=== PATIENT | male | born 1950 | race Caucasian/White ===

== ENCOUNTER → 2018-08-23 09:57 | Outpatient (CLI) | payer OTHER, SELFPAY ==
--- NOTE | 2018-08-23 10:01 | US_ITS ---
PROCEDURES: ULTRASOUND AORTA REASON FOR EXAM: Male, 67 years old. Aortic aneurysm TECHNIQUE: Ultrasound evaluation of the aorta was performed with real-time and static marques-scale imaging. COMPARISON: None. FINDINGS: There is no elongation or tortuosity of the abdominal aorta. Aorta measures: Proximal 2 cm. Middle 1.5 cm. Distal 1.5 cm. Aorta measure transversely: Proximal 2.6 cm. Middle 1.7 cm. Distal 1.4 cm. Right iliac artery measures: 1 cm. Right iliac artery measure transversely: 1 cm. Left iliac artery measures: 0.9 cm. Left iliac artery measure transversely: 1 cm. There is no demonstrated aneurysm.. US/Aorta IMPRESSION: No evidence for aortic aneurysm Electronically Signed: Nikolai Mckay MD at 21:49 EDT , Service support ,
== END ==
DX: I10 Essential (primary) hypertension (principal); J44.9 Chronic obstructive pulmonary disease, unspecified; Z87.891 Personal history of nicotine dependence
CPT/HCPCS: 76775

== ENCOUNTER → 2021-05-07 13:41 | Outpatient (CLI) | payer OTHER, SELFPAY ==
--- NOTE | 2021-05-07 13:45 | CT_ITS ---
STUDY: LOW DOSE CT LUNG CANCER SCREENING REASON FOR EXAM: Male, 70 years old. LUNG CA SCREENING. Former smoker. Patient smoked 1 pack per day for 40 years. RADIATION DOSAGE (If Supplied By Facility): CTDIvol = ( 4.02 ) mGy, DLP = ( 141.45 ) mGycm TECHNIQUE: No contrast was administered. Low dose technique was utilized (average mAS-38 and kVp 120). 1.25 mm axial source images with a slice interval of 1.25-mm were reconstructed in lung windows. 2.5 mm axial source images with a slice interval of 2.5-mm were reconstructed in lung windows. 5.0 mm axial source images with a slice interval of 5.0-mm were reconstructed in soft tissue windows. Nodule measured using lung windows on PACS and/or independent workstation with automated measurement of minimum and maximum diameter. Nodule measurement reported as average diameter rounded to the nearest whole number. Growth is defined as an increase ins size of greater than 1.5 mm. COMPARISON: None. Small benign-appearing bilateral axillary lymph nodes. NODULES: 1.5 mm noncalcified nodule in the peripheral lateral aspect of the left upper lobe as seen on axial image #108. Calcified granuloma in the lateral anterior left upper lobe. There is a 3.3 mm partially calcified nodule in the anterior aspect of the right upper lobe as seen on axial image #131. Tiny calcified nodule in the anterior aspect of the left upper lobe as seen on axial image #134. Emphysema: Focal linear scarring in the posterior aspect of the lingular segment of the left upper lobe abutting the left major fissure. Mild scarring at the lung bases slightly more prominent on the right side. Calcified granuloma in the right lower lobe. Endobronchial lesion: None Aorta: Atherosclerotic plaque formation. Coronary arteries: Coronary artery calcification. Heart: Unremarkable Pulmonary artery: Unremarkable Mediastinal nodes: Other chest and abdominal findings: CT/Low Dose CT Lung Screening IMPRESSION: Lung-RADS category 2 - Continue annual screening with LDCT in 12 months. IMPORTANT NOTES FOR USE: ACR Lung-RADS Version 1.1 Assessment Categories Release Date: 2018 Category: Coded 0-4 bases on nodule(s) with highest degree of suspicion. Negative screen is defined as categories 1 and 2; a positive screen is defined as categories 3 and 4. Category 3 and 4A nodules that are unchanged on interval CT should be coded as category 2, and individuals returned to screening in 12 months. Category 4X: Category 3 or 4 nodules with additional imaging findings that increase the suspicion of lung cancer, such as spiculation, GGN that doubles in size in 1 year, enlarged lymph notes, etc. Category Modifiers: S (significant finding unrelated to lung cancer) Electronically Signed: Candelario Esquivel MD at 14:43 EST , Service support ,
== END ==
PROVIDERS: Visit Provider Nurse Practitioner
DX: Z12.2 Encounter for screening for malignant neoplasm of respiratory organs (principal); Z87.891 Personal history of nicotine dependence
CPT/HCPCS: 71271

== ENCOUNTER → 2021-05-21 09:43 | Outpatient (CLI) | payer OTHER, SELFPAY ==
--- NOTE | 2021-05-21 09:45 | ECHOCS_ITS ---
Reason For Study: CHEST PAIN Procedure This was a 2D Doppler, Color Flow transthoracic echocardiogram. The study was technically difficult. Contrast injection was performed. Exam performed in department. Left Ventricle Normal LV size. Mild concentric left ventricular hypertrophy. Left ventricular systolic function is normal. The estimated ejection fraction is 60 %. Stage 1 diastolic dysfunction. No regional wall motion abnormalities noted. Right Ventricle Normal RV size. Normal systolic function. Atria Normal left atrium. Normal right atrium. Mitral Valve Normal mitral valve. Tricuspid Valve Normal tricuspid valve. Mild (1+) tricuspid valve insufficiency. Pulmonary artery systolic pressure is 30 mmHg. Aortic Valve Normal aortic valve. Pulmonic Valve Normal pulmonic valve. Great Vessels Normal aortic root. The pulmonary artery is normal size. Normal inferior vena cava. Pericardium/Pleural No pericardial effusion. Medication 22 gauge I.V. with prn adaptor inserted into right arm. Diluted definity 3.0ml given slow IV push to enhance endocardial definition. MMode/2D Measurements & Calculations LVIDd: 4.3 cm IVSd: 1.2 cm Ao root diam: 3.6 cm LVIDs: 3.1 cm LVPWd: 1.3 cm RVDd: 3.3 cm FS: 26.8 % LAV(MOD-bp): 40.0 ml LA A4 area: 15.7 cm2 LA dimension(2D): 2.7 cm LAV(MOD-bp) Indexed: 18.5 ml/m2 LAV(MOD-sp2): 41.4 ml LAV(MOD-sp4): 34.5 ml RA A4 area: 12.4 cm2 Doppler Measurements & Calculations MV E max guanaco: 44.2 cm/sec Lat Peak E' Guanaco: 8.3 cm/sec Med Peak E' Guanaco: 5.7 cm/sec MV A max guanaco: 80.5 cm/sec E/E' lat: 5.4 E/E' med: 7.7 MV E/A: 0.55 Ao V2 max: 114.2 cm/sec LV V1 max: 94.4 cm/sec TR max guanaco: 252.1 cm/sec Ao max P.2 mmHg LV V1 max P.6 mmHg TR max P.4 mmHg ECHO/Echo Complete W/ Contrast Interpretation Summary Normal LV size. Left ventricular systolic function is normal. The estimated ejection fraction is 60 %. Mild concentric left ventricular hypertrophy. Stage 1 diastolic dysfunction. Pulmonary artery systolic pressure is 30 mmHg. Ordering Physician: BEBE JULY Referring Physician: FARHEEN FL Performed By: Gaby Natarajan, MADONNACS, RVT
== END ==
DX: R07.9 Chest pain, unspecified (principal)
CPT/HCPCS: 93306; Q9957; A4216; C8929

== ENCOUNTER → 2021-05-26 06:39 | Outpatient (CLI) | payer OTHER, SELFPAY ==
--- NOTE | 2021-05-26 14:28 | STRESSREP ---
Stress Test Report Date: 05-26-2021 Procedure: Pharmacologic stress nuclear imaging study Indications: Chest pain; hypertension Consent: Per the patient Procedure: The patient underwent pharmacologic (Regadenoson 0.4mg ) evaluation with a peak heart rate of 88 beats per minute (59%predicted maximal heart rate) and a peak blood pressure of 198/100 mmHg. The baseline ECG demonstrated sinus rhythm. The peak pharmacologic ECG demonstrated no obvious ECG changes. There was an isolated PVC pretest. There was no complaint of chest discomfort during pharmacologic infusion or recovery. The examination was discontinued secondary to completion of protocol. Impression: 1. Pharmacologic (Regadenoson) evaluation 2. Peak pharmacologic ECG with no obvious ECG changes. 3. There were no cardiac dysrhythmias pretest, during pharmacologic infusion, or recovery. 4. Nuclear images pending Myocardial perfusion imaging study: Technique: The patient was injected with 14.8 millicuries of technetium 99m Cardiolite and subsequently rest SPECT Cardiolite nuclear imaging was obtained in the horizontal long, vertical long, and short axis views. The patient underwent pharmacologic (Regadenoson) evaluation with a peak heart rate of 88 beats per minute (59% percent predicted maximal heart rate) and a peak blood pressure of 198/100 mmHg. The patient was injected with 45.0 millicuries of technetium 99m Cardiolite and subsequently stress SPECT Cardiolite nuclear imaging was obtained in the horizontal long, vertical long, and short axis views. A gated Cardiolite study at peak stress was obtained. Interpretation: Rest and stress SPECT Cardiolite nuclear imaging status post realignment, normalization, and attenuation correction demonstrate relative uniform tracer uptake and myocardial perfusion appearing within normal limits. There is end systolic thickening and brightening. The gated Cardiolite study demonstrates myocardial thickening and inward wall motion. The reported LVEF is 66%. Impression: 1. Rest and stress SPECT Cardiolite nuclear imaging demonstrate relative uniform tracer uptake and myocardial perfusion appearing within normal limits. 2. The gated Cardiolite study reports an LVEF of 66%. This note was generated with [employer] software. It may contain incorrect words, spelling, and punctuation that were not noted in checking the note before signing.
== END ==
DX: R07.9 Chest pain, unspecified (principal)
CPT/HCPCS: 78452; 93017; A9500; A4216; J2785

== ENCOUNTER → 2022-06-16 | Outpatient (CLI) | payer OTHER, MEDICARE, SELFPAY ==
--- NOTE | 2022-06-16 14:26 | CT_ITS ---
STUDY: CT CHEST WITHOUT CONTRAST REASON FOR EXAM: Male, 71 years old. HX PULM NODULE/FU RADIATION DOSAGE (If Supplied By Facility): CTDIvol = ( 13.48 ) mGy, DLP = ( 491.92 ) mGycm TECHNIQUE: Transaxial imaging was performed without the administration of intravenous contrast material. Multiplanar coronal and sagittal images were reformatted. Individualized dose optimization techniques were used for this CT. COMPARISON: Comparison is made with prior study dated 05/07/2021. FINDINGS: CHEST Stable small benign-appearing bilateral axillary lymph nodes. Stable 1.5 mm noncalcified peripheral lateral aspect of the left upper lobe as seen on axial image #57. Adjacent to this, there is a tiny calcified granuloma. Stable 3.3 mm partially calcified nodule in the anterior aspect of the right upper lobe as seen on axial image #67. Stable focal linear scarring in posterior aspect of the lingular segment left upper lobe as well as at the lung bases more prominent on the right side. There is no demonstrated pleural abnormality. There are calcifications of the coronary arteries. Mild degree of anterior pericardial thickening. There are multiple small lymph nodes within the mediastinum, which are normal in size and morphology most compatible with reactive lymph hyperplasia. Normal hilar regions. Normal unenhanced pulmonary arteries. There is atherosclerotic calcification of the aortic arch with tortuosity and elongation of the aortic arch and descending thoracic aorta. There are multi-level degenerative changes of the thoracic spine. There is no demonstrated abnormality of the visualized upper abdomen. CT/Chest without Contrast IMPRESSION: Stable examination. Electronically Signed: Candelario Esquivel MD at 8:55 EST ,
== END | disposition home or self-care (01) ==
DX: R91.1 Solitary pulmonary nodule (principal)
CPT/HCPCS: 71250

== ENCOUNTER 2022-09-14 07:36 | Day surgery (SDC) | payer OTHER, SELFPAY ==
--- NOTE | 2022-09-14 08:08 | PCM.HP.BLA ---
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 Is patient in pain?: No Allergies amlodipine Allergy (Severe, Verified 08/27/22 13:55) Anaphylaxispravastatin Adverse Reaction (Intermediate, Verified 08/27/22 13:55) rashSulfa (Sulfonamide Antibiotics) Adverse Reaction (Mild, Verified 08/27/22 13:55) hives Medications albuterol sulfate 90 mcg/actuation aerosol inhaler 2 puff inhalation Q6H PRN 06/29/21 [History Confirmed 08/27/22] aspirin 81 mg tablet,delayed release (Adult Low Dose Aspirin) 81 mg PO DAILY 06/29/21 [History Confirmed 08/27/22] budesonide-formoterol HFA 160 mcg-4.5 mcg/actuation aerosol inhaler 2 puff inhalation BID 06/29/21 [History Confirmed 08/27/22] cetirizine 10 mg tablet 10 mg PO DAILY PRN 06/29/21 [History Confirmed 08/27/22] cyclobenzaprine 10 mg tablet 5 mg PO BID 06/29/21 [History Confirmed 08/27/22] diclofenac potassium 50 mg tablet 50 mg PO BID PRN 06/29/21 [History Confirmed 08/27/22] famotidine 40 mg tablet 40 mg PO DAILY 06/29/21 [History Confirmed 08/27/22] latanoprost 0.005 % eye drops 1 drp ophthalmic (eye) DAILY 06/29/21 [History Confirmed 08/27/22] losartan 100 mg tablet 100 mg PO DAILY 06/29/21 [History Confirmed 08/27/22] metoprolol tartrate 25 mg tablet 12.5 mg PO BID 06/29/21 [History Confirmed 08/27/22] terazosin 2 mg capsule 4 mg PO QHS 06/29/21 [History Confirmed 08/27/22] colestipol 1 gram tablet (Colestid) 1 g PO QHS 07/08/21 [History Confirmed 08/27/22] fluticasone propionate 50 mcg/actuation nasal spray,suspension (Allergy Relief (fluticasone)) 1 spray intranasal BID 07/08/21 [History Confirmed 08/27/22] rosuvastatin 20 mg tablet 20 mg PO DAILY 07/08/21 [History Confirmed 08/27/22] amlodipine 5 mg tablet 5 mg PO DAILY #90 tabs 07/09/21 [Rx Confirmed 08/27/22] hydrochlorothiazide 25 mg tablet 25 mg PO DAILY #90 tabs 07/09/21 [Rx Confirmed 08/27/22] cholecalciferol (vitamin D3) 50 mcg (2,000 unit) capsule 50 mcg PO DAILY 04/06/22 [History Confirmed 08/27/22] omega 3-dha 60 mg-epa 90 mg-fish oil 500 mg capsule, delayed release (Fish Oil) 2 cap PO DAILY 04/06/22 [History Confirmed 08/27/22] polyethylene glycol 3350 17 gram/dose oral powder 4 g PO DAILY 04/06/22 [History Confirmed 08/27/22] PFSH Medical History? Arthritis BPH (benign prostatic hyperplasia) COPD (chronic obstructive pulmonary disease) Diverticulosis Essential hypertension EtOH dependence GERD (gastroesophageal reflux disease) Glaucoma High cholesterol History of back problems Hyperlipidemia Hypertension Obesity Paroxysmal supraventricular tachycardia Seasonal allergies Syncope Tetrahydrocannabinol (THC) use disorder, mild, in controlled environment, abuse Vision problems Vitamin deficiency Surgical History? History of left knee surgery History of tonsillectomy Family History? Father Cancer Bone cancerBrother Throat cancer Social History? Smoking Status:? Former smoker Tobacco: How many years used:? 40 how long ago did patient quit smoking:? 10years ago second hand exposure:? No alcohol intake:? current alcohol intake frequency: 0-2 drinks per day Alcohol type: hard liquor substance use type:? marijuana caffeine:? Yes Type: coffee Number of servings: 1 what type of physical activity do you participate in:? none aminata/samaritan:? None seatbelt use:? always HPI HPI HPI: 71-year-old gentleman is being referred by the [place] [facility] for consideration of evaluation of a anemia.? A written copy of my surgical consult recommendations will return to them.? Among his other medications he is on famotidine 40 mg orally daily.? His most recent colonoscopy was May 23, 2019 polyp was notified in the sigmoid colon and within the rectum.? This was performed at the [facility] in [place].? The sigmoid polyp was a tubular adenoma and the rectal polyp hyperplastic polyp.? A repeat exam in 3 years was recommended.? As of August 03, 2022 white blood cell count was 6.4 with a hemoglobin of 13.1 and hematocrit of 38.4 both borderline low.? Platelet count 294,000.? BUN is 12 and creatinine 1.3.? Ferritin was 205 normal.? Iron was 95 normal.? TIBC 336 normal.? Folate was borderline high at 17.49. Patient was a long-term cigarette smoker.? He notes that he has COPD.? He does not do much activity.? He can go up a flight of stairs but admittedly does get short of breath.? No bright red blood per rectum or melena.? No abdominal pain.? No unexpected weight loss.? He does have at least 2 whiskeys with coke in the evening prior to bed.? He denies any personal history of hepatitis or cirrhosis.? Denies history of DVT. ROS General General: Yes fatigue; No weight change, appetite, colon cancer, breast cancer or weakness HEENT HEENT: No difficulty swallowing, eye injury, eye surgery, swollen glands or hoarseness Endo Endocrine: No thyroid disease, diabetes mellitus, thyroid cancer, Hair loss, heat intolerance or cold intolerance Skin Skin: No rash or changing moles Breast Breast: No left breast lump, right breast lump, nipple discharge, breast pain, abnormal mammogram, abnormal US or breast enlargement Musc Musculoskeletal: Yes back problems and arthritis; No rheumatoid arthritis, gout or joint pain Cardio Cardiovascular: Yes high blood pressure; No murmur, pacemaker, heart disease, atrial fibrillation, heart attack, heart stent, palpitations, shortness of breat with exertion or chest pain Psych Psychiatric: No depression, anxiety or hearing voices Resp Respiratory: Yes shortness of breath, Yes sleep apnea, No cough, Yes COPD, No asthma, No emphysema and No wheezing Gastro Gastrointestinal: No abdominal pain, No nausea or vomiting, No diarrhea, No constipation, Yes blood in stool, Yes acid reflux, No hemorrhoids, No ulcers, No gallbladder problem and Yes black,tarry stools Vikas Hematologic: Yes blood thinners, No blood disorders, No bleeding, No anemia and No blood clots Neuro Neurologic: No system reviewed and no additional complaints, except as documented, No as per HPI, No abnormal gait, No abnormal hearing, No abnormal movements, No abnormal speech, No behavioral changes, No burning sensations, No confusion, No convulsions, No disequilibrium, No dizziness, No localized weakness, No frequent falls, No headache(s), No lack of coordination, No loss of vision, No memory loss, No numbness, No other visual disturbances, No radicular pain, No restless legs, No sensory deficit, No syncope, No tingling, No tremor(s), No weakness and No other Exam Const General: cooperative, comfortable and no acute distress [facility] Head: normal to inspection Eyes General: appearance normal, both eyes and all related structures Chest Other: Increased anterior posterior diameter Resp Other: Slightly diminished respiratory excursion with some scattered dry rales occasional wheeze Cardio Rate: regular rate Rhythm: regular rhythm GI Other: Protuberant, normal bowel sounds, no gross hepatosplenomegaly but difficult to palpate due to body habitus, nontender Musc Cervical Spine: normal cervical lordosis Skin General: no rashes or lesions noted Neuro General: patient alert and patient awake Other: Slight hand tremor noted Extrem General: no calf tenderness Psych Appearance: grossly normal Assessment and Plan Assessment and Plan (1) Anemia: ?Status:?Chronic (2) Personal history of colonic polyps: ?Status:?Acute ?Plan: I recommended the patient a combined esophagogastroduodenoscopy with possible biopsy and colonoscopy with possible biopsy or polypectomy as indicated.? He is aware of the technique, benefit, risk, alternatives.? He has had an opportunity to ask and have questions answered.? I anticipate proceeding with monitored anesthesia care.? We will proceed as noted. I appreciate the opportunity of assisting with the surgical care Copy: [facility] Fabricio Luciano M.D., F.A.C.S. I have examined the patient and the H&P has been reviewed. There are no clinical changes since date of exam. Fabricio Luciano M.D., F.A.C.S.
[2022-09-14 08:09] VITALS: BP 133/63; PULSE 80; RESP 18; TEMP 36.4; O2SAT 95; BMI 29.4
[2022-09-14] MEDS: Lactated Ringers 1,000 ML 15 ML IV (08:12)
--- NOTE | 2022-09-14 08:45 | COLBX_PTH ---
PATIENT: BOAZ CAMPOS LOC: EN U#:[id number] AGE/SX: 71/M ROOM: RE09/14/[address]: Dr. Fabricio Luciano MD : 1950 BED: DIS: 09/14/2022 SPEC #: [id number] RECD: 09/14/22 11:39 STATUS: CHARITO LUIS FERNANDO #: [id number] JOVANY: 09/14/22 08:[address]: Fabricio Luciano DEPT: SURGICAL PATHOLOGY RECD BY: Mil Morales ENTERED: 09/14/22 12:55 SP TYPE: COLON BX OTHR DR: [facility] Tissues: A - Duodenum, NOS B - COLON BIOPSY C - Esophagus, NOS D - Sigmoid colon biopsy Procedures: Special Stain Group II Surgery Specimen Level IV Alcian Blue/PAS (control) HEADER OPERATION: Colonoscopy, EGD ([facility]) PRE-OP DIAGNOSIS: History of colonic polyps, anemia TISSUE SUBMITTED: A ? Duodenum biopsy, B ? Antrum for H. pylori and path, C ? Distal esophagus biopsy, D ? Distal sigmoid polyp biopsy MICROSCOPIC DIAGNOSIS A. Duodenum, biopsy: A fragment of duodenal mucosa, no pathologic diagnosis. B. Antrum, biopsy: Mild gastritis. See microscopic description and comment. C. Distal esophagus, biopsy: Fragments of gastroesophageal mucosa with focal intestinal metaplasia (goblet cell metaplasia), consistent with Puri's esophagus. Chronic inflammation. Negative for dysplasia. See comment. D. Distal sigmoid polyp, biopsy: Fragments of hyperplastic polyp. SJ:noemy 09/15/2022 COMMENT B. The results of immunohistochemistry for Helicobacter pylori will be reported separately ([id number]). C. Immunohistochemistry ([id number]) for P53 and Ki-67 will be performed and results will be reported separately. Alcian blue/PAS stain with matched control is used in the evaluation of the specimen. MICROSCOPIC DESCRIPTION Slides are reviewed. B. The specimen shows fragments of gastric mucosa with chronic inflammatory cell infiltrates in the lamina propria consisting of lymphocytes and plasma cells, consistent with mild chronic gastritis. GROSS DESCRIPTION A - Received in fixative is one container labeled with the patient's name and designated duodenum biopsy. The specimen consists of one irregular fragment of light christianson soft tissue that measures 0.6 x 0.5 x 0.1 cm. The specimen is totally submitted in one cassette. B - Received in fixative is one container labeled with the patient's name and designated antrum. The specimen consists of one irregular fragment of light christianson soft tissue that measures 0.5 x 0.5 x 0.1 cm. The specimen is totally submitted in one cassette. C - Received in fixative is one container labeled with the patient's name and designated distal esophagus. The specimen consists of multiple irregular fragments of light christianson soft tissue that in aggregate measure 2.0 x 0.5 x 0.1 cm. The specimen is totally submitted in one cassette. D - Received in fixative is one container labeled with the patient's name and designated distal sigmoid polyp. The specimen consists of two irregular fragments of light christianson soft tissue that in aggregate measure 0.7 x 0.6 x 0.1 cm. The specimen is totally submitted in one cassette. / AM:noemy 09/14/2022 TC:5 CPT: 46964 x4, 47761
--- NOTE | 2022-09-14 08:45 | IMM_PTH ---
PATIENT: BOAZ CAMPOS LOC: EN U#:[id number] AGE/SX: 71/M ROOM: RE09/14/[address]: Dr. Fabricio Luciano MD : 1950 BED: DIS: 09/14/2022 SPEC #: [id number] RECD: 09/14/22 13:03 STATUS: CHARITO RERoman #: [id number] JOVANY: 09/14/22 08:[address]: Fabricio Luciano DEPT: IMMUNOHISTOCHEMISTRY RECD BY: Dee Johns ENTERED: 09/14/22 13:03 SP TYPE: IMMUNO OTHR DR: [facility] Tissues: B - Stomach, NOS C - Esophagus, NOS Procedures: H Pylori (initial) P53 (initial) KI-67 (add) PHYSICIAN & INSTITUTION [place] [id number] SPECIMEN INFORMATION: Tissue Source: B ? Antrum, C ? Distal esophagus Clinical Info: History of colonic polyps, anemia Specimen Number: [id number] B & C CPT code: 15852 x2, 47570 METHODOLOGY: Deparaffinized sections of prefer/formalin-fixed tissue or PAP/DQ stained slides are incubated with monoclonal/polyclonal antibodies/oligonucleotide probes. Localization is made via biotin free immunoperoxidase method. Appropriate controls are performed and reacted as expected. Results on target cell population are indicated in the following table: RESULTS: ANTIBODY / CLONE RESULT Block B H Pylori (polyclonal) negative Block C P53 (DO-7) negative (null pattern) Ki-67 (30-9) positive, very low These tests were developed and their performance characteristics determined by [facility]. They may not have been cleared or approved by the U.S. Food and Drug Administration. The FDA has determined that such clearance or approval is not necessary. The above immunohistochemical/dualISH markers are ordered and reviewed by the Pathologist. INTERPRETATION: B. Antrum, biopsy: Negative for Helicobacter pylori organisms. C. Distal esophagus, biopsy: Negative for dysplasia. SJ:noemy 09/16/2022
[2022-09-14 09:25] VITALS: BP 114/58; BP 133/63; PULSE 87; RESP 16; TEMP 36.7; O2SAT 94
--- NOTE | 2022-09-14 09:28 | OP.EGD_ITS ---
Patient Name: Yogesh Pineda Procedure Date: 09/14/2022 8:47 AM Date of : 1950 Age: 71 Procedure: Upper GI endoscopy Indications: Iron deficiency anemia Providers: Fabricio Luciano MD Referring MD: Fabricio Luciano MD Medicines: See the Anesthesia note for documentation of the administered medications Complications: No immediate complications. Procedure: Pre-Anesthesia Assessment: - Prior to the procedure, a History and Physical was performed, and patient medications and allergies were reviewed. The patient's tolerance of previous anesthesia was also reviewed. The risks and benefits of the procedure and the sedation options and risks were discussed with the patient. All questions were answered, and informed consent was obtained. Prior Anticoagulants: The patient has taken no previous anticoagulant or antiplatelet agents. ASA Grade Assessment: III - A patient with severe systemic disease. After reviewing the risks and benefits, the patient was deemed in satisfactory condition to undergo the procedure. After obtaining informed consent, the endoscope was passed under direct vision. Throughout the procedure, the patient's blood pressure, pulse, and oxygen saturations were monitored continuously. The colonoscope was introduced through the mouth, and advanced to the second part of duodenum. The upper GI endoscopy was accomplished without difficulty. The patient tolerated the procedure well. 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 The maximum longitudinal extent of these mucosal changes was 3 cm in length. Mucosa was biopsied with a cold forceps for histology in a targeted manner at intervals of 1 cm in the lower third of the esophagus. One specimen bottle was sent to pathology. A medium-sized hiatal hernia was present. The entire examined stomach was normal. Biopsies were taken with a cold forceps for histology. The examined duodenum was normal. Biopsies were taken with a cold forceps for histology. 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 Biopsied. - Medium-sized hiatal hernia. - Normal stomach. Biopsied. - Normal examined duodenum. Biopsied. Recommendation: - Discharge patient to home. - Resume previous diet. - Continue present medications. - Use Prilosec (omeprazole) 20 mg PO daily. Patient is already on famotidine. We will notify him of pathology results. He can then follow-up with the [place] medical system as well. Procedure Code(s): --- Professional --- 18589, Esophagogastroduodenoscopy, flexible, transoral; with biopsy, single or multiple Diagnosis Code(s): --- Professional --- K22.8, Other specified diseases of esophagus K44.9, Diaphragmatic hernia without obstruction or gangrene D50.9, Iron deficiency anemia, unspecified CPT copyright 2017 [employer]. All rights reserved. The codes documented in this report are preliminary and upon coder operator review may be revised to meet current compliance requirements. Fabricio Luciano MD 09/14/2022 9:27:50 AM This report has been signed electronically. Number of Addenda: 0 Note Initiated On: 09/14/2022 8:47 AM
--- NOTE | 2022-09-14 09:28 | OP.CCLET_ITS ---
09/14/2022 [facility] Re : Upper GI endoscopy procedure for [facility] This procedure was performed on Wednesday, September 14, 2022. 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 Biopsied. - Medium-sized hiatal hernia. - Normal stomach. Biopsied. - Normal examined duodenum. Biopsied. Recommendations : - Discharge patient to home. - Resume previous diet. - Continue present medications. - Use Prilosec (omeprazole) 20 mg PO daily. Patient is already on famotidine. We will notify him of pathology results. He can then follow-up with the [place] medical system as well. My findings are described in the full procedure note, which is enclosed. If I can be of further assistance, please feel free to contact me at Doctor phone number(s): Work: . Sincerely, Fabricio Luciano MD 09/14/2022 9:27:50 AM This report has been signed electronically.
[2022-09-14 09:30] VITALS: BP 116/68; BP 133/63; PULSE 80; RESP 16; O2SAT 95
--- NOTE | 2022-09-14 09:32 | OP.COLON_ITS ---
Patient Name: Yogesh Pineda Procedure Date: 09/14/2022 9:06 AM Date of : 1950 Age: 71 Procedure: Colonoscopy Indications: High risk colon cancer surveillance: Personal history of colonic polyps Providers: Fabricio Luciano MD Referring MD: Fabricio Luciano MD Medicines: See the Anesthesia note for documentation of the administered medications Patient Profile: Last Colonoscopy: within the past 3 years. Complications: No immediate complications. Procedure: Pre-Anesthesia Assessment: - Prior to the procedure, a History and Physical was performed, and patient medications and allergies were reviewed. The patient's tolerance of previous anesthesia was also reviewed. The risks and benefits of the procedure and the sedation options and risks were discussed with the patient. All questions were answered, and informed consent was obtained. Prior Anticoagulants: The patient has taken no previous anticoagulant or antiplatelet agents. ASA Grade Assessment: III - A patient with severe systemic disease. After reviewing the risks and benefits, the patient was deemed in satisfactory condition to undergo the procedure. After I obtained informed consent, the scope was passed under direct vision. Throughout the procedure, the patient's blood pressure, pulse, and oxygen saturations were monitored continuously. The colonoscope was introduced through the anus and advanced to the cecum, identified by appendiceal orifice and ileocecal valve. The colonoscopy was performed without difficulty. The patient tolerated the procedure well. The quality of the bowel preparation was adequate to identify polyps. The ileocecal valve and the appendiceal orifice were photographed. Scope In: 9:08:02 AM Scope Withdrawal Time 0 hours 9 minutes 22 seconds Scope Out: 9:21:50 AM Total Procedure Duration Time 0 hours 13 minutes 48 seconds Findings: The digital rectal exam findings include non-thrombosed external hemorrhoids, non-thrombosed internal hemorrhoids, internal hemorrhoids that prolapse with straining, but spontaneously regress to the resting position (Grade II) and enlarged prostate. A 5 mm polyp was found in the distal sigmoid colon. The polyp was sessile. The polyp was removed with a hot snare. Resection and retrieval were complete. Scattered diverticula were found in the sigmoid colon. Impression: - Non-thrombosed external hemorrhoids, non-thrombosed internal hemorrhoids, internal hemorrhoids that prolapse with straining, but spontaneously regress to the resting position (Grade II) and enlarged prostate found on digital rectal exam. - One 5 mm polyp in the distal sigmoid colon, removed with a hot snare. Resected and retrieved. - Diverticulosis in the sigmoid colon. Recommendation: - Discharge patient to home. - Resume previous diet. - Continue present medications. - Repeat colonoscopy date approx 5 years after pending pathology results are reviewed for surveillance. - Telephone my office for pathology results in 1 week. Procedure Code(s): --- Professional --- 14005, Colonoscopy, flexible; with removal of tumor(s), polyp(s), or other lesion(s) by snare technique Diagnosis Code(s): --- Professional --- Z86.010, Personal history of colonic polyps D12.5, Benign neoplasm of sigmoid colon K64.1, Second degree hemorrhoids K64.4, Residual hemorrhoidal skin tags N40.0, Benign prostatic hyperplasia without lower urinary tract symptoms K57.30, Diverticulosis of large intestine without perforation or abscess without bleeding CPT copyright 2017 [employer]. All rights reserved. The codes documented in this report are preliminary and upon manager relocation review may be revised to meet current compliance requirements. Fabricio Luciano MD 09/14/2022 9:32:32 AM This report has been signed electronically. Number of Addenda: 0 Note Initiated On: 09/14/2022 9:06 AM
--- NOTE | 2022-09-14 09:33 | OP.CCLET_ITS ---
09/14/2022 [facility] Re : Colonoscopy procedure for [facility] This procedure was performed on Wednesday, September 14, 2022. My impressions and recommendations are as follows: Impressions : - Non-thrombosed external hemorrhoids, non-thrombosed internal hemorrhoids, internal hemorrhoids that prolapse with straining, but spontaneously regress to the resting position (Grade II) and enlarged prostate found on digital rectal exam. - One 5 mm polyp in the distal sigmoid colon, removed with a hot snare. Resected and retrieved. - Diverticulosis in the sigmoid colon. Recommendations : - Discharge patient to home. - Resume previous diet. - Continue present medications. - Repeat colonoscopy date approx 5 years after pending pathology results are reviewed for surveillance. - Telephone my office for pathology results in 1 week. My findings are described in the full procedure note, which is enclosed. If I can be of further assistance, please feel free to contact me at Doctor phone number(s): Work: . Sincerely, Fabricio Luciano MD 09/14/2022 9:32:32 AM This report has been signed electronically.
[2022-09-14 09:35] VITALS: BP 117/63; BP 133/63; PULSE 84; RESP 16; O2SAT 94
[2022-09-14 09:40] VITALS: BP 112/68; BP 133/63; PULSE 81; RESP 16; TEMP 36.8; O2SAT 95
[2022-09-14 09:51] VITALS: BP 133/63
== END 2022-09-14 10:02 | disposition home or self-care (01) ==
LOC: EN 07:38 → AC 07:39
PROVIDERS: Visit Provider Surgery
PROC: 0DJD8ZZ Inspection of Lower Intestinal Tract, Via Natural or Artificial Opening Endoscopic (ICD-10-PCS; CPT 45378; principal; 2022-09-14 08:40)
DX: K22.70 Barrett's esophagus without dysplasia (principal); J44.9 Chronic obstructive pulmonary disease, unspecified; K64.4 Residual hemorrhoidal skin tags; K64.1 Second degree hemorrhoids; K29.70 Gastritis, unspecified, without bleeding; K63.5 Polyp of colon; N40.0 Benign prostatic hyperplasia without lower urinary tract symptoms; K57.30 Diverticulosis of large intestine without perforation or abscess without bleeding; K44.9 Diaphragmatic hernia without obstruction or gangrene; I10 Essential (primary) hypertension; E66.9 Obesity, unspecified; E78.00 Pure hypercholesterolemia, unspecified; D50.9 Iron deficiency anemia, unspecified; Z79.82 Long term (current) use of aspirin; Z79.899 Other long term (current) drug therapy; Z87.891 Personal history of nicotine dependence; Z86.010 Personal history of colon polyps
CPT/HCPCS: 43239; 45385; 88305; 88313; 88341; 88342; J7120; J2405

== ENCOUNTER → 2023-09-15 | Outpatient (CLI) | payer OTHER, SELFPAY ==
--- NOTE | 2023-09-15 13:52 | CT_ITS ---
STUDY: LOW DOSE CT LUNG CANCER SCREENING REASON FOR EXAM: Male, 72 years old. Personal history of nicotine dependence. Patient smokes 1 pack per day for 30 years. RADIATION DOSAGE (If Supplied By Facility): CTDIvol = ( 4.02 ) mGy, DLP = ( 131.90 ) mGycm TECHNIQUE: No contrast was administered. Low dose technique was utilized (average mAS-38 and kVp 120). 1.25 mm axial source images with a slice interval of 1.25-mm were reconstructed in lung windows. 2.5 mm axial source images with a slice interval of 2.5-mm were reconstructed in lung windows. 5.0 mm axial source images with a slice interval of 5.0-mm were reconstructed in soft tissue windows. COMPARISON: Comparison is made with prior study dated June 16, 2022. NODULES: Stable 1.5 mm noncalcified nodule in the peripheral lateral aspect of the left upper lobe. Stable 3.3 mm partially calcified nodule in the anterior aspect of the right upper lobe. Stable linear scarring in the posterior aspect of the lingular segment of the left upper lobe as well as in the posterior medial aspect of both lower lobes. Emphysema: No significant emphysema is seen. Endobronchial lesion: None Aorta: Atherosclerotic calcification of the aortic arch. CORONARY ARTERIES: Coronary artery calcification is seen. Heart: Remarkable Pulmonary artery: Unremarkable. Mediastinal nodes: Small mediastinal lymph nodes. Other chest and abdominal findings:
== END | disposition home or self-care (01) ==
LOC: CT 13:44
PROVIDERS: Referring Provider Family Medicine; Visit Provider Family Medicine
DX: Z12.2 Encounter for screening for malignant neoplasm of respiratory organs (principal); R91.1 Solitary pulmonary nodule; Z87.891 Personal history of nicotine dependence
CPT/HCPCS: 71271

== ENCOUNTER → 2023-12-12 | Outpatient (CLI) | payer OTHER, SELFPAY | END | disposition home or self-care (01) | PROVIDERS: PCP Family Medicine; Referring Provider Family Medicine; Visit Provider Family Medicine | DX: M54.50 Low back pain, unspecified (principal); M54.16 Radiculopathy, lumbar region ==

== ENCOUNTER → 2024-09-17 | Outpatient (CLI) | payer OTHER, SELFPAY ==
--- NOTE | 2024-09-17 14:13 | CT_ITS ---
PROCEDURE: LOW DOSE CT LUNG SCREENING 09/17/2024 REASON FOR EXAM: LUN CA SCREENING Former smoker. TECHNIQUE: Low Dose CT Lung screening without contrast. Coronal and Sagittal reconstruction series were provided. One or more dose reduction techniques were used (e.g., Automated exposure control, adjustment of the mA and/or kV according to patient size, use of iterative reconstruction technique). REFERENCE LINK: [employer] Lung-RADS RADIATION DOSE SUMMARY: CTDlvol: 3.02 mGy DLP: 112.49 mGycm COMPARISON: Prior study dated September 15, 2023. FINDINGS: PULMONARY NODULES: (Only nodules >3mm are reported) Nodules described below are on series 1 unless otherwise specified. Pulmonary Nodules: Stable 1.5 mm partially calcified nodule in the peripheral lateral aspect of the left upper lobe. Stable calcified nodule in the right lower lobe with focal area of scarring. Stable scarring in the lateral aspect of the right middle lobe as well as stable noncalcified nodule in the right upper lobe. Hardware:None Lymph Nodes:No significant adenopathy is seen. Heart and Vasculature:The heart is not enlarged. Coronary Artery Calcifications: Present Lungs and Airways: Stable findings as described Pleura:Unremarkable Upper Abdomen:Unremarkable Bones:Degenerative changes of the thoracic spine. CT/Low Dose CT Lung Screening IMPRESSION: Stable examination Coronary artery calcification (CAC) is is present Lung-RADS Category: 2 BENIGN (BASED ON IMAGING FEATURES OR INDOLENT BEHAVIOR). RECOMMEND 12-MONTH SCREENING LDCT. Other Significant Findings: None. Reading Location: [place] [id number]
== END | disposition home or self-care (01) ==
LOC: CT 14:11
PROVIDERS: PCP Family Medicine; Referring Provider Nurse Practitioner Adult Health; Visit Provider Nurse Practitioner Adult Health
DX: F17.211 Nicotine dependence, cigarettes, in remission (principal)
CPT/HCPCS: 71271

== ENCOUNTER → 2024-10-16 | Outpatient (CLI) | payer OTHER, SELFPAY ==
--- NOTE | 2024-10-16 09:41 | US_ITS ---
PROCEDURE: ABD LIMITED W/ ELASTOGRAPHY REASON FOR EXAM: VET WITH ALCHOL USE DISORDER, WEIGHT LOSS, WORSENED LIVER ENZYMES COMPARISON: None TECHNIQUE: Right upper quadrant abdominal ultrasound. Sunil ElastQ Imaging shear wave elastography for non-invasive assessment of liver tissue stiffness. Sunil EPIQ Elite. FINDINGS: LIVER: Size: Enlarged (hepatomegaly) Length: 18 cm Echotexture: Diffusely echogenic suggesting fatty infiltration Contour: Normal Lesions: None identified Elastography: EQI Med: 6.3 kPa EQI Med [place]: 1.5 m/s IQR/Med: 18 %* GALLBLADDER: Sludge is seen within the gallbladder lumen. The gallbladder wall is not thickened. COMMON BILE DUCT: Normal measuring 4 mm. . PANCREAS: Visualized portions are unremarkable. The distal body and tail are obscured by bowel gas. Visualized portions of the right kidney are unremarkable. No right upper quadrant ascites. US/ABD Limited w/ Elastography IMPRESSION: MODERATE HEPATIC FIBROSIS Hepatomegaly and fatty infiltration of the liver. Sludge is seen within the gallbladder lumen. Reference Values: SRU <1.37 m/s (5.7kPa): No to mild fibrosis 1.37 m/s - 2.2 m/s: Moderate to severe fibrosis >2.2 m/s (15kPa): Significant fibrosis / cirrhosis METAVIR Score F2 or higher: 1.34 m/s (5.7kPa) F3 or higher: 1.55 m/s (7.3kPa) F4: 1.80 m/s (10kPa) * If the IQR/Med is >30%, the variance in the measurements is a large and the a ccuracy of the measurement may be in question. Mild hepatomegaly and fatty infiltration of the liver. Sludge is seen within the gallbladder lumen. Reading Location: [place] [id number]
== END | disposition home or self-care (01) ==
PROVIDERS: PCP Family Medicine; Referring Provider Family Medicine; Visit Provider Family Medicine
DX: R94.5 Abnormal results of liver function studies (principal)
CPT/HCPCS: 76705; 76981